=== PATIENT | female | born 1980 | race Caucasian/White ===

== ENCOUNTER 2016-07-03 07:59 | Outpatient (CLI) ==
--- NOTE | 2016-07-03 11:46 | DI ---
EXAM: Esophogram HISTORY: Dysphasia COMPARISON: None FINDINGS: Esophogram was performed using barium. Esophageal motility is normal. Esophogeal mucosal pattern is grossly normal, noting portions of the esophogus demonstrate single contrast opacificati on which limits evaluation. No filling defect is seen in the esophagus. There is a small hiatal layne ia with a mild Schatzki ring noted. Small reflux identified on real time examination. 13 mm barium pill passed freely into stomach. IMPRESSION: 1. Small hiatal hernia with a mild Schatzki ring noted. 13 mm barium pill passed freely into stoma ch. 2 Small reflux identified on real time examination.
== END 2016-07-03 08:00 | disposition home or self-care (01) ==
LOC: RAD 07:59
PROVIDERS: ATTEND Internal Medicine Endocrinology, Diabetes & Metabolism
DX: R13.10 Dysphagia, unspecified (principal)

== ENCOUNTER 2017-09-07 16:11 | Outpatient (CLI) | END 2017-09-07 16:12 | disposition home or self-care (01) | LOC: FCC-LAB 16:11 | PROVIDERS: ATTEND Family Medicine | DX: R53.81 Other malaise (principal); E04.1 Nontoxic single thyroid nodule | CPT/HCPCS: 36415; 80053; 84439; 84443; 85025 ==